=== PATIENT | female | born 1980 | race African-American/Black ===

== ENCOUNTER 2017-11-19 09:14 | Emergency (ER) | payer OTHER ==
[~2017-11-19] VITALS: Ht 157.5 cm; Wt 72.6 kg
[2017-11-19] MEDS ORDERED: ULTRAM 50MG TAB50 MG PO (10:38)
[2017-11-19] MEDS ORDERED: BACTRIM DS TAB1 EACH PO (10:38)
[2017-11-19 10:40] VITALS: BP 116/70
== END 2017-11-19 10:40 | disposition home or self-care (01) ==
LOC: ER 09:14
DX: N76.4 Abscess of vulva (principal); Z88.0 Allergy status to penicillin

== ENCOUNTER 2020-06-19 17:07 | Inpatient (IN) | payer OTHER ==
[~2020-06-19] VITALS: Ht 157.5 cm; Wt 79.4 kg
[~2020-06-19 17:07] MED LIST: BACTRIM DS TAB1 EACH PO; ULTRAM 50MG TAB50 MG PO
[2020-06-19 17:19] VITALS: BP 146/93
[2020-06-19 18:55] LABS: ABSOLUTE NEUTROPHILS 10.1 thou/uL (1.4-8.2); BASOPHILS 0.4 % (0.0-2.0); EOSINOPHILS 0.2 % (0.0-3.0); HEMOGLOBIN 12.5 gm/dL (12.0-15.0); LYMPHOCYTES 16.8 % (24.0-44.0); MCH 33.9 pg (26.0-34.0); MCV 99.9 fL (80.0-100.0); MONOCYTES 7.5 % (1.0-8.0); PLATELET COUNT 331 thou/uL (150-400); POLYS 75.1 % (36.0-66.0); RDW 14.4 % (10.5-14.5); WBC 13.5 thou/uL (4.0-11.0)
[2020-06-19 19:04] LABS: CALCIUM 9.2 mg/dL (8.5-10.1); CREATININE 1.2 mg/dL (0.6-1.0); POTASSIUM 3.8 mmol/L (3.5-5.1)
[2020-06-20 04:58] VITALS: BP 118/71
[2020-06-20 05:16] VITALS: BP 117/66
[2020-06-20 05:24] VITALS: BP 130/84
--- NOTE | 2020-06-20 06:34 | NUR ---
PATIENT ARRIVED VIA BED AT 0525 FROM ED WITH ALCOHOL STILL OPERATOR. PATIENT ALERT AND ORIENTED X4. THIS NURSE STARTED IV FLUID PER ORDER. DENIES PAIN. VITALS STABLE. WILL HAVE AM NURSE ADMIT PATIENT.
[2020-06-20 07:14] VITALS: BP 138/87
--- NOTE | 2020-06-20 07:45 | EKG ---
[address] [address] ELECTROCARDIOGRAM REPORT Name: SIMON LEBRON Room #: 441-P ADM IN M.R.#: [id number] Admission: 06/19/20 Attend Phys: Aniket Thompson, Discharge: Date of : 76 Report #: [id number] [facility] ED Test Date: 2020-06-19 Test Time: 18:52:46 Pat Name: SIMON LEBRON Department: Room: [facility] Gender: F [employer] Supervisor: serena : 1980 Requested By: Miguel Pate Order Number: [id number] MD: Eamon Mosley Measurements Intervals [place] Rate: 94 P: 60 GA: 118 QRS: 39 QRSD: 79 T: 27 QT: 365 QTc: 457 Interpretive Statements Sinus rhythm Borderline short GA interval Anteroseptal infarct, old No previous ECG available for comparison Electronically Signed On 06-20-2020 7:44:50 COLOR BUFFER by Eamon Mosley [email or web address] <ELECTRONICALLY SIGNED> By: Eamon Mosley MD, [facility] 06/20/20 0744 [id number] Eamon Mosley MD, FACC /EPI
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
--- NOTE | 2020-06-20 10:17 | NUR ---
ASSUMED CARE AT 0700. PT IS A&OX4. PT IS COMPLAINING OF SLIGHT PAIN ON LEFT KNEE. PT IS TOLERATING WELL WITH REPOSITIONING. NON WEIGHT BEARING ON LEFT LEG. PT IS CURRENTLY NPO WITH IV ON L. AC. IV IS INTACT AND SHOWS NO SIGNS OF REDNESS OR SWELLING. SKIN IS INTACT. TRANSFERRED FROM ER AT 0530. WILL CONTINUE TO MONITOR. SURGERY TODAY AT 1500.
[2020-06-20 20:00] VITALS: BP 143/86
[2020-06-21 05:30] LABS: HEMOGLOBIN 12.3 gm/dL (12.0-15.0); MCH 33.9 pg (26.0-34.0); MCHC 33.3 g/dL (28.0-37.0); MCV 101.8 fL (80.0-100.0); RBC 3.63 mil/uL (4.20-5.00); RDW 14.7 % (10.5-14.5); WBC 8.7 thou/uL (4.0-11.0)
--- NOTE | 2020-06-21 05:32 | NUR ---
ASSUMED PT CARE AT SHIFT CHANGE. PT A&OX4. PT TOLERATES MEDICATION. ADMINISTERED HYDROCODONE FOR PAIN. PT IS PLEASANT AND ABLE TO VOICE NEEDS. IV IS IN LEFT AC WITH FLUIDS RUNNING. DRESSING FROM SURGERY INTACT, CLEAN AND IN PLACE. HOURLY ROUNDING DONE. WILL CONTINUE TO MONITOR.
[2020-06-21 05:53] LABS: ALBUMIN 3.4 g/dL (3.4-5.0); CREATININE 1.1 mg/dL (0.6-1.0); MAGNESIUM 2.1 mg/dL (1.8-2.4); PHOSPHORUS 4.1 mg/dL (2.6-4.7)
[2020-06-21 07:00] VITALS: BP 124/67
[2020-06-21] MEDS ORDERED: PERCOCET PO (11:04)
[2020-06-21] MEDS ORDERED: MIRALAX17 GM PO (11:05)
[2020-06-21] MEDS ORDERED: COLACE100 MG PO (11:05)
--- NOTE | 2020-06-21 11:36 | NUR ---
PT CARE ASSUMED AT 0700. A&Ox4. IV PATENT WITH NO REDNESS OR EDEMA, SALINE LOCKED. ANTIBIOTICS INFUSED. NON WEIGHT BEIRING ON OPERATIVE SITE. PAIN CONTROLLED WELL WITH PAIN MEDICATION ON BOARD. INCENTICE SPIROMETER ENCOURAGED TO BE USED. CLEARED BY PT TO DISCAHRGE. CHRYSTAL DRESSING DRY AND ITACT. PT EDUCATION GIVEN ON DRESSING. ICEPACK IN PLACE. FALL PROTOCOL IN PLACE. CALL LIGHT IN REACH. UP THE RECLINER. WILL CONTINUE TO MONITOR.
--- NOTE | 2020-06-21 14:41 | NUR ---
ON-GOING ASSESSMENT: PT IS STABLE TO DISCHARGE BUT IS NEEDING CRUTCHES. PT HAS NO PREFERENCE OF DME COMPANY. CM SPOKE WITH PROVIDER [employer] WHO IS OUT OF NETWORK WITH INSURANCE. DONALD STATING THEY DO NOT KEEP CRUTCHES IN STOCK. ANGIE STATING CRUTCHES ARE INELIEGBLE WITH [employer] [facility]. CM NOTIFIED CM DIRECTOR AND APPROVAL TO COVER COST OF CRUTCHES THROUGH PROVIDER [facility]. PROVIDER [facility] DELIVERED CRUTCHES TO PTS ROOM.
[2020-06-21] MEDS ORDERED: ELIQUIS2.5 MG PO (15:42)
[2020-06-21 15:45] VITALS: BP 124/67
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
== END 2020-06-21 16:42 | disposition home or self-care (01) | DRG 494 ==
LOC: ER 17:07 → 4S 18:50 → EROBS 18:50 → 4S 06-20 05:19
PROVIDERS: Nurse Practitioner; Surgery; ADMIT Surgery; ATTEND Surgery
PROC: 0QSH04Z Reposition Left Tibia with Internal Fixation Device, Open Approach (ICD-10-PCS; principal; 2020-06-19)
DX: S82.142A Displaced bicondylar fracture of left tibia, initial encounter for closed fracture (principal); R58 Hemorrhage, not elsewhere classified; F31.9 Bipolar disorder, unspecified; F20.9 Schizophrenia, unspecified; F19.11 Other psychoactive substance abuse, in remission; E11.9 Type 2 diabetes mellitus without complications; Z20.822 Contact with and (suspected) exposure to COVID-19; Z88.0 Allergy status to penicillin; Z79.899 Other long term (current) drug therapy; W18.39XA Other fall on same level, initial encounter; Y93.89 Activity, other specified; Y92.89 Other specified places as the place of occurrence of the external cause; Y99.8 Other external cause status
CPT/HCPCS: 10195; 50010; 50101; 50386; 51412; 53337; 56528; 57091; 57116; 57180; 58478; 58479; 58480; 58481; 58482; 58483; 58489; 62110; 62900; 64043; 65060; 70005